=== PATIENT | female | born 1950 | race Caucasian/White ===

== ENCOUNTER 2024-03-07 07:01 | Day surgery (SDC) | payer MEDICARE, OTHER ==
[~2024-03-07] VITALS: Ht 149.9 cm; Wt 68.2 kg
[~2024-03-07 07:01] MED LIST: ATOR-2 PO; KETOROLAC TROMETHAMINE 0.5% 5 ML OPHTHALMIC SOLUTION ONE; MOXIFLOXACIN HCL 0.5% 3 ML OPHTHALMIC SOLUTION ONE; PHENYLEPHRINE HCL 2.5% 2 ML OPHTHALMIC SOLUTION ONE; RINGERS SOLUTION,LACTATED 500 ML IV ONE; TROPICAMIDE 1% 2 ML OPHTHALMIC SOLUTION ONE
[2024-03-07] MEDS: RINGERS SOLUTION,LACTATED 500 ML IV ONE (08:24)
[2024-03-07] MEDS: PHENYLEPHRINE HCL 2.5% 2 ML OPHTHALMIC SOLUTION OD SCH (08:25)
[2024-03-07] MEDS: KETOROLAC TROMETHAMINE 0.5% 5 ML OPHTHALMIC SOLUTION OD SCH (08:25)
[2024-03-07] MEDS: MOXIFLOXACIN HCL 0.5% 3 ML OPHTHALMIC SOLUTION OD SCH (08:25)
[2024-03-07] MEDS: TROPICAMIDE 1% 2 ML OPHTHALMIC SOLUTION OD SCH (08:25)
[2024-03-07] MEDS: BALANCED SALT 15 ML OPHTHALMIC IRRIG.SOLN ONE (10:05)
[2024-03-07] MEDS: TETRACAINE HCL/PF 0.5% 4 ML OPHTHALMIC SOLUTION ONE (10:05)
[2024-03-07] MEDS: EPINEPHrine 1:1,000 [1 MG/ML] VIAL ONE (10:06)
[2024-03-07] MEDS: LIDOCAINE/PF 1% 2 ML VIAL ONE (10:07)
[2024-03-07] MEDS: POVIDONE-IODINE 5% 30 ML OPHTHALMIC SOLUTION ONE (10:08)
[2024-03-07] MEDS ORDERED: FentaNYL CITRATE PF 100 MCG/2 ML VIAL IVP ONE (12:00)
[2024-03-07] MEDS ORDERED: MIDAZOLAM HCL 2 MG/2 ML VIAL IVP ONE (12:00)
== END 2024-03-07 11:10 | disposition home or self-care (01) ==
LOC: SURGERY 07:01
PROVIDERS: ATTEND Ophthalmology
DX: H25.11 Age-related nuclear cataract, right eye (principal); H40.10X3 Unspecified open-angle glaucoma, severe stage; R94.31 Abnormal electrocardiogram [ECG] [EKG]
CPT/HCPCS: 65820; 93005; 66984; J0171; J3010; J3490; J2250; J7120; V2632